=== PATIENT | male | born 1995 | race Caucasian/White ===

== ENCOUNTER 2021-10-19 22:43 | Emergency (ER) | payer BC ==
[~2021-10-19] VITALS: Ht 175.2 cm; Wt 81.6 kg
[2021-10-19 23:32] LABS: BASO # 0.1 10*3/uL (0.0-0.1); BASO % 2.4 % (0.0-1.0); EOS # 0.1 10*3/uL (0.0-0.4); EOS % 1.6 % (1.0-4.0); HEMATOCRIT 46.3 % (42.0-52.0); LYMPH # 1.4 10*3/uL (1.3-4.4); LYMPH % 38.4 % (27.0-41.0); MEAN CELL VOLUME 82.2 fl (80.0-94.0); MEAN CORPUSCULAR HGB 27.5 pg (27.0-31.0); MEAN CORPUSCULAR HGB CONC 33.5 g/dl (33.0-37.0); MEAN PLATELET VOLUME 9.1 fl (9.6-12.3); MONO # 0.6 10*3/uL (0.1-1.0); MONO % 14.7 % (3.0-9.0); NEUT # 1.6 10*3/uL (2.3-7.9); NEUT % 42.6 % (47.0-73.0); PLATELET COUNT AUTOMATED 240 10*3/uL (130-400); RED BLOOD COUNT 5.63 10*6/uL (4.50-5.90); WHITE BLOOD COUNT 3.8 10*3/uL (4.8-10.8)
[2021-10-19 23:47] LABS: ALKALINE PHOSPHATASE 59 U/L (45-117); BUN 11 mg/dl (7-24); CHLORIDE 106 mmol/L (98-107); CREATININE 0.93 mg/dL (0.70-1.30); SGOT/AST 29 IU/L (3-35); SGPT/ALT 66 U/L (12-78); SODIUM 139 mmol/L (136-145); TOTAL PROTEIN 7.4 gm/dL (6.4-8.2)
[2021-10-20] MEDS ORDERED: PREDNISONE20 M1 PO (01:00)
== END 2021-10-20 01:18 | disposition home or self-care (01) ==
LOC: ED 22:43
PROVIDERS: Emergency Medicine
DX: R07.89 Other chest pain (principal)

== ENCOUNTER 2021-10-22 23:10 | Emergency (ER) | payer BC ==
[~2021-10-22] VITALS: Ht 175.2 cm; Wt 83.9 kg
[~2021-10-22 23:10] MED LIST: PREDNISONE20 M1 PO
== END 2021-10-22 23:43 | disposition left against medical advice (07) ==
LOC: ED 23:10
DX: Z53.21 Procedure and treatment not carried out due to patient leaving prior to being seen by health care provider (principal)

== ENCOUNTER 2025-01-28 07:08 | Emergency (ER) | payer BC ==
[~2025-01-28] VITALS: Ht 175.2 cm; Wt 83.9 kg
[2025-01-28] MEDS ORDERED: SODIUM CHLORIDE 0.9% 500 ML IV ONE ×2 (07:35→08:10)
[2025-01-28 08:08] LABS: BASO # 0.1 10*3/uL (0.0-0.1); BASO % 0.8 % (0.0-1.0); EOS # 0.1 10*3/uL (0.0-0.4); EOS % 2.2 % (1.0-4.0); MEAN CELL VOLUME 81.1 fl (80.0-94.0); MEAN CORPUSCULAR HGB 26.9 pg (27.0-31.0); MEAN PLATELET VOLUME 8.9 fl (9.6-12.3); MONO # 0.5 10*3/uL (0.1-1.0); MONO % 7.3 % (3.0-9.0); NEUT # 4.2 10*3/uL (2.3-7.9); NEUT % 64.6 % (47.0-73.0); NUCLEATED RED BLOOD CELL 0.0 % (0.0-0.0); NUCLEATED RED BLOOD CELL 0.0 10*3/uL (0.0-0.0); PLATELET COUNT AUTOMATED 287 10*3/uL (130-400); RED CELL DISTRI WIDTH 11.9 % (0-14.5)
[2025-01-28 08:19] LABS: BILIRUBIN Negative (Negative); BLOOD 3+ (Negative); CLARITY Cloudy (Clear); COLOR Yellow (Yellow); KETONE Negative (Negative); LEUKO ESTERASE Trace (Negative); NITRITE Negative (Negative); PH 5.5 (4.5-8.0); SPECIFIC GRAVITY 1.025 (1.001-1.030); UROBILINOGEN 1.0 E.U./dl (0.0-1.0)
[2025-01-28 08:25] LABS: BUN 10 mg/dl (9-23)
[2025-01-28 08:53] LABS: BACTERIA 1+; MUCOUS 2+; RBC 21-30 rbc/hpf (0-2)
[2025-01-28] MEDS ORDERED: TAMSULOSIN HCL0.4 MG PO ×2 (09:51→10:05)
[2025-01-28] MEDS ORDERED: PERCOCET 5-3251 EACH PO ×2 (09:51→10:05)
[2025-01-28] MEDS ORDERED: NAPROSYN500 MG PO ×2 (09:51→10:05)
[2025-01-28] MEDS ORDERED: Ondansetron4 MG PO ×2 (09:51→10:05)
== END 2025-01-28 09:57 | disposition home or self-care (01) ==
LOC: ED 07:08
PROVIDERS: Emergency Medicine
DX: N13.2 Hydronephrosis with renal and ureteral calculous obstruction (principal); R10.31 Right lower quadrant pain